=== PATIENT | male | born 1990 | race Asian ===

== ENCOUNTER 2025-11-18 09:43 | Outpatient (AMB) | payer OTHER, SELFPAY ==
--- NOTE | 2025-11-18 09:44 | A.OFFPC_ITS ---
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: No Allergies No Known Allergies Allergy (Verified 11/18/25 09:54) Medication List - Last Reconciled 11/18/25 by JAIMEE Mak No Known Home Meds Tobacco use date assessed: 11/18/25 Dental Screening Dental Screen Date: 11/18/25 Did you have a dental visit in the last 12 months?: No Did you have a dental problem in the last 6 months where you did not have access to dental care?: No Was dental information given to patient?: Patient has dentist HPI HPI Comments History of Present Illness Details 35 y/o [place]ian M with hx of R arm bi rth injury resulting in some numbness of forearm and contracture at elbow, fhx of dm and CHF (dad) Surgery: None Fhx: Dad with DM 79 of CHF, PUncle with DM; Mom alive and well; 3 sisters alive and well. No children. 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 - He expresses a desire to gain muscle m ass. - He denies any specific gastrointestina l symptoms such as abdominal pain, nausea, vomiting, or hematochezia. - He also denies dizziness. 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 - He reports that this has been present since and was told it may have been the result of a injury related - He is able to perform all activities a nd has adapted by using his left hand for certain tasks, but notes the cosmetic appearance and smaller muscle mass on the affected side. Past Medical History - Reports being generally healthy, with past minor illnesses such as flu, fever, and throat infections. 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 - No known drug allergies. - Takes no regular medications. Past Surgical History - Denies any history of surgeries. Family History - Father was diabetic and at age 79 from heart failure. - Maternal uncles had diabetes. - Mother is alive and has no health cond itions. - He has three healthy sisters. 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 - Housing: Lives with his and her p arents. - Family Status: He is and has n o children. - Substance Use: He denies being a smoke r. - He immigrated to the [place] from [place] about 14 months ago. - Functional status: Reports being activ e and has adapted well to his congenital arm deformity. - Depression and anxiety screening were negative. Review of Systems - Constitutional: Reports lifelong thin body habitus despite normal diet. - Gastrointestinal: Denies abdominal karlee n, nausea, vomiting, and blood in stool. - Neurological: Denies dizziness. - Musculoskeletal: Reports congenital de formity of the right arm with limited extension. Physical Exam General: Well developed, well nourished, in no acute distress. Appears stated age. Thin build Head: Normocephalic, atraumatic. Eyes: Pupils are equal, round and reactive to light and accommodation. Conjunctivae are clear. Scleras nonicteric bilat. Vision grossly normal. Ears: TMs clear AU, EACS WNL Nose: Patent, without discharge. Neck: No carotid bruit bilat. Supple, no adenopathy or thyromegaly. Breast: Edu on SBE Lungs: Clear to auscultation bilaterally. No rales, rhonchi or wheeze noted. Good air flow in all kenney. Heart: Regular rate and rhythm. No murmurs, click, rubs or gallops are noted. Abdomen: Bowel sounds present in all quadrants. The abdomen is soft, nontender, with no masses or organomegaly noted. No hernias are noted. : Deferred. Reviewed TARAH & recommendations Pulses: Peripheral pulses are equal and palpable bilaterally. Extremities: No clubbing, cyanosis nor edema is noted. Mild contracture at elbow in R with LROM and decreased muscle Neurologic: Gait and station normal. Cranial Nerves 2-12 intact. Motor strength grossly symmetrical and intact. No sensory loss. Balance normal. Skin: No rashes, ulcers, or lesions noted. Turgor is good. Skin color is good. Hair and nails are without abnormalities. Psych: Normal eye contact, affect and mood appropriate, and normal interactions. Patient is alert and appropriate to context. Results Pending Medical Decision Making The patient is a 35-year-old male establishing primary care with a chief concern of being underweight his entire life despite a normal diet. His BMI is 19.9. Given his concern and family history of diabetes, initial evaluation will include screening for metabolic and endocrine abnormalities. Laboratory studies, including a thyroid panel, testosterone level, and screening for anemia, will be ordered to investigate potential underlying causes for his inability to gain weight. Malabsorption is less likely given the absence of any reported gastrointestinal symptoms. His congenital right arm deformity is chronic, and he is well-adapted with no functional deficits reported, so no acute intervention is warranted. The plan includes a blood draw and urine sample today for baseline health screening, with a follow-up to be determined by the results. Plan Health Maintenance - Established care as a new patient. - Plan to follow up in one year for an a nnual physical exam. - Patient declined Tdap and influenza im munizations at this time. - Patient instructed on how to sign up f or and use the [facility] patient portal for lab results and communication 1. Underweight - To investigate the patient's concern o f being underweight, laboratory studies will be ordered, including screening for diabetes, cholesterol, thyroid dysfunction, anemia, and low testosterone levels. - The patient will provide a blood and u rine sample today. - A plan will be formulated based on the results of these tests. 2. Congenital Deformity Of Right Upper L imb - Noted the chronic, congenital deformit y of the right arm. - The patient is asymptomatic and well-a dapted; no further workup or intervention is indicated at this time. Patient Instructions - Please go for blood work and provide a urine sample today before you leave the clinic. - You will receive an email to sign up f or our patient portal, called [facility]. Please click the link in the email to create your username and password. - When you register for the portal, be s ure to select [facility] as the organization. - You will be able to see your lab resul ts and receive messages from me through the [facility]. - Please schedule your next appointment for an annual physical exam in one year. - You will receive printed information a bout our office, the patient portal, and urgent care locations at the front end assistant. Consent Patient was informed and verbally consented to the use of an ambient scribe for clinic note documentation during this visit. An additional 16 minutes was spent addressing the problem(s) noted at todays visit. This includes time spent before the visit reviewing the chart, time spent during the visit, and time spent after the visit on documentation reviewing la boratory results, diagnostic imaging, medications, performing a medically necessary evaluation, counseling on diagnoses, care coordination, ordering appropriate tests, ordering appropriate medications, review of tests performed by other providers, reporting test results with the patient, communication with other healthcare providers. [facility] Medical History (Updated 11/18/25 @ 10:11 by Ophelia Louis [facility]) No pertinent past medical history Surgical History (Updated 11/18/25 @ 09:49 by Alvarado Fox MA) No pertinent past surgical history Family History (Updated 11/18/25 @ 09:50 by Alvarado Fox MA) Father Diabetes Paternal Uncle Diabetes Social History (Updated 11/18/25 @ 09:50 by Alvarado Fox MA) Household Members: Spouse, Family and Children Both parents involved: No Caregiver staying overnight: No Housing: House Are you a primary critical care registered nurse to a significant other at home: No Do you presently have visiting nurse or other home services: No 75 years or older and lives alone: No Alcohol intake: never Patient Tobacco Use Status: Never used Tobacco e-Cigarette/Vaping Use: Never Used Second Hand Smoke Exposure: No service: No Current occupational status: employed 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 1. Little interest or pleasure in doing things: not at all 2. Feeling down, depressed, or hopeless: not at all 3. Trouble falling or staying asleep, or sleeping too much: several days 4. Feeling tired or having little energy: not at all 5. Poor appetite or overeating: not at all 6. Feeling bad about yourself - or that you are a failure or have let yourself or your family down: not at all 7. Trouble concentrating on things, such as reading the newspaper or watching television: not at all 8. Moving or speaking so slowly that other people could have noticed. Or the opposite - being so fidgety or restless that you have been moving around a lot more than usual: not at all 9. Thoughts that you would be better off or of hurting yourself in some way: not at all Total score: 1 Depression Screening Interpretation: Negative Depression Screening Done: Yes 05341 - PHQ-9 Billing: Yes Source: Developed by Drs. Sp Long, Deysi Willingham, Obinna Vora and colleagues, with an educational sandra from [employer]. Thrive Questionnaire Date Thrive assessed: 11/18/25 I am a: Patient What is your living situation today?: I have a steady place to live Within the past 12 months, did the food you bought not last and you didn't have the money to get more?: Never true Within the past 12 months, did you worry whether your food would run out before you got money to buy more?: Never true Do you have trouble paying for medicines?: No Do you have trouble getting transportation to medical appointments?: No Do you have trouble paying your heating and electricity bill?: No Do you have trouble taking care of your child, family member or friend?: No Do you have trouble with day-to-day activities such as bathing, preparing meals, shopping, managing finances, etc.?: No Are you currently unemployed and looking for a job?: No Are you interested in more education?: Yes Please select the resources that you would like help with: None Currently or been in a relationship where the following occur: No concerns reported THRIVE Score: 0 AUDIT C Alcohol Use Questionnaire (AUDIT-C) 1. How often do you have a drink containing alcohol?: Never 3. How often do you have six or more drinks on one occasion?: Never Total Score: 0 Score Reviewed/Action Taken: Yes ALISHA-7 AMB Questionnaire ALISHA-7 Date ALISHA - 7 assessed: 11/18/25 Feeling nervous, anxious, or on edge: 0 = Not at all Not being able to stop or control worryin = Not at all Worrying too much about different things: 0 = Not at all Trouble relaxin = Not at all Being so restless that it is hard to sit still: 0 = Not at all Becoming easily annoyed or irritable: 0 = Not at all Feeling afraid as if something awful might happen: 0 = Not at all Total ALISHA-7 score (0-4 normal; 5-9 mild; 10-14 moderate; 15-21 severe): 0 Source: Developed by Drs. Sp Long, Deysi Willingham, Obinna Vora and colleagues, with an educational sandra from [employer]. ALISHA-7 Assessment Billing ALISHA-7 Assessment Tool: ALISHA-7 Assessment 51918 Physical exam (Primary Care) Vital Signs: Last Vital Signs Temp 97.6 F 11/18/25 09:50 Pulse 74 11/18/25 09:50 Resp 12 11/18/25 09:50 BP 101/68 11/18/25 09:50 Pulse Ox 100 11/18/25 09:50 Oxygen Delivery Method Room Air 11/18/25 09:50 BMI result Body Mass Index 19.9 Tobacco/Smoking Status: Tobacco use Status Tobacco use date assessed 11/18/25 11/18/25 09:47 Patient Tobacco Use Status Never used Tobacco 11/18/25 09:50 e-Cigarette/Vaping Use Never Used 11/18/25 09:50 PHQ-9: PHQ-9 Score PHQ-9: Total score 1 11/18/25 09:47 Depression Screening Interpretation: Negative Thrive Assessment: Date of Thrive Assessment Date Thrive assessed 11/18/25 11/18/25 09:47 Currently or been in a relationship where the following occur: No concerns reported Coding Level of Care Code New Pt Level 2 (54677) New Pt Prev Care 18-39yr(01053 Diagnoses Encounter to establish care with new provider Z76.89 Body mass index (BMI) of 19 or less in adult Z68.1 Laboratory exam ordered as part of routine general medical examination Z00.00 Influenza vaccination declined Z28.21 Tetanus, diphtheria, and acellular pertussis (Tdap) vaccination declined Z28.21 Family history of diabetes mellitus Z83.3 Family history of congestive heart failure Z82.49 Right arm numbness R20.0 Adult general medical exam Z00.00 Additional Codes ALISHA-7 Assessment Billing - ALISHA-7 Assessment Tool: ALISHA-7 Assessment 73925 ([id number]) PHQ-9 - 96138 - PHQ-9 Billing: Yes ([id number]) Assessment & Plan Assessment & Plan (1) Encounter to establish care with new provider: Code(s): Z76.89 - Persons encountering health services in other specified circumstances (2) Body mass index (BMI) of 19 or less in adult: Code(s): Z68.1 - Body mass index [BMI] 19.9 or less, adult Category: Medical (3) Laboratory exam ordered as part of routine general medical examination: Code(s): Z00.00 - Encounter for general adult medical examination without abnormal findings Category: Medical (4) Influenza vaccination declined: Onset Date: ~11/18/25 Code(s): Z28.21 - Immunization not carried out because of patient refusal Category: Medical (5) Tetanus, diphtheria, and acellular pertussis (Tdap) vaccination declined: Onset Date: ~11/18/25 Code(s): Z28.21 - Immunization not carried out because of patient refusal Category: Medical (6) Family history of diabetes mellitus: Comment: dad and paternal uncles Code(s): Z83.3 - Family history of diabetes mellitus Category: Medical (7) Family history of congestive heart failure: Comment: dad Code(s): Z82.49 - Family history of ischemic heart disease and other diseases of the circulatory system Category: Medical (8) Right arm numbness: Comment: lifelong s/p injury, which sounds like shoulder dystocia Code(s): R20.0 - Anesthesia of skin Category: Medical (9) Adult general medical exam: Onset Date: ~11/18/25 Code(s): Z00.00 - Encounter for general adult medical examination without abnormal findings Category: Medical Plan . Orders: Orders Complete Blood Count no Diff Today Z00.00 - Encounter for general adult medical examination without abnormal findings, Z68.1 - Body mass index [BMI] 19.9 or less, adult Comprehensive Met. Panel Today Z00.00 - Encounter for general adult medical examination without abnormal findings, Z68.1 - Body mass index [BMI] 19.9 or less, adult Lipid Panel Today Z00.00 - Encounter for general adult medical examination without abnormal findings, Z68.1 - Body mass index [BMI] 19.9 or less, adult Microalbumin, Random (w Creat) Today Z00.00 - Encounter for general adult medical examination without abnormal findings, Z68.1 - Body mass index [BMI] 19.9 or less, adult TSH reflex Free T4 Today Z00.00 - Encounter for general adult medical examination without abnormal findings, Z68.1 - Body mass index [BMI] 19.9 or less, adult IRON PROFILE Today Z00.00 - Encounter for general adult medical examination without abnormal findings, Z68.1 - Body mass index [BMI] 19.9 or less, adult Ferritin Today Z00.00 - Encounter for general adult medical examination without abnormal findings, Z68.1 - Body mass index [BMI] 19.9 or less, adult HIV Ab/Ag Today Z00.00 - Encounter for general adult medical examination without abnormal findings, Z68.1 - Body mass index [BMI] 19.9 or less, adult Testosterone, Free/Total Today Z00.00 - Encounter for general adult medical examination without abnormal findings, Z68.1 - Body mass index [BMI] 19.9 or less, adult Hemoglobin A1c Today Z00.00 - Encounter for general adult medical examination without abnormal findings, Z68.1 - Body mass index [BMI] 19.9 or less, adult Vitamin B12 and Folate Today Z00.00 - Encounter for general adult medical examination without abnormal findings, Z68.1 - Body mass index [BMI] 19.9 or less, adult Vitamin D 25-OH Total Today Z00.00 - Encounter for general adult medical examination without abnormal findings, Z68.1 - Body mass index [BMI] 19.9 or less, adult Hepatitis A,B,C Profile Today Z00.00 - Encounter for general adult medical examination without abnormal findings, Z68.1 - Body mass index [BMI] 19.9 or less, adult Patient Instructions: Walk-In Care (Urgent Care): We Make it Easy Walk-in for urgent medical issues such as: ? Seasonal Allergies ? Insect Bites ? Cough ? Diarrhea ? Acute Asthma Attacks ? Back, Knee or Joint Pain ? Ear Infection ? Fever without a Rash ? Headaches ? Nausea ? [place] Eye, Rash or Skin Irritation ? Sore Throat ? Sports Physicals ? Vomiting Most insurances are accepted. Patients do not need to be part of the [facility] to seek care at the walk-in clinic. Locations [address] [place] [address] Open Friday through Friday 8am-5pm *Hours may vary due to staffing availability. To confirm Walk-In Care hours please call. [address] [facility] , [place] [address] ? [phone] [facility] in [place] provides services to ages 18 and over. Open Friday-Friday: 7 a.m. to 5 p.m. and Friday: 9 a.m. to 3 p.m.* *Hours may vary due to staffing availability. To confirm Walk-In Care hours in [place], please call [phone]. [address] [place] [address] ? [phone] [facility] in [place] provides services to ages 12 and over. Open Friday-Friday: 8 a.m. to 5 p.m. Hours may vary due to staffing availability. To confirm Walk-In Care hours in [place], please call [phone]. LABORATORY SERVICES: [facility] ? Primary Location [address] [place] [address] Friday through Friday 6:00 AM ? 5:00 PM Friday 7:00 AM ? 11:00 AM* [phone] The [facility] is centrally located near the front entrance of the [facility] for easy outpatient access. Convenient parking is provided for outpatients. *Hours may vary due to staffing availability. To confirm Laboratory hours for any location, please call [phone]. Offsite Location For your convenience, we offer offsite laboratory draw stations at the following locations: [address] [place] [address] ? [address], [address] Friday through Friday 7:30 AM ? 1:00 PM* [phone] *Hours may vary due to staffing availability. To confirm Laboratory hours for any location, please call [phone]. [place] ? [address] Friday through Friday 6:00 AM ? 3:30 PM* Friday 6:30 AM ? 3 PM* [phone] *Hours may vary due to staffing availability. To confirm Laboratory hours for any location, please call [phone]. [address] [facility] Friday through Friday 7:30 AM ? 4:00 PM* [phone] *Hours may vary due to staffing availability. To confirm Laboratory hours for any location, please call [phone]. [address] [facility] Friday through 9:00 AM ? 4:00 PM* *Hours may vary due to staffing availability. To confirm Laboratory hours for any location, please call [phone]. Appointments are not necessary. Walk-ins are welcome. Like all the departments throughout the [facility], our Lab undergoes frequent reviews to ensure the quality and accuracy of test results, and our staff takes special pride in its status as a nationally accredited facility. Patient Portal: [facility] ONE PATIENT. ONE RECORD. BETTER CARE. [facility] has a fully integrated, cutting- edge mobile electronic health information system that has revolutionized the way we care for our patients and manage our organization. This system improves communication and coordination enabling us to provide safe, higher-quality care, and an overall positive experience for staff and patients. Our first priority, as always, is to deliver the highest quality care possible. The system is running in the background supporting that priority. This portal is for all [facility] and [facility] services and practices. If you are experiencing any technical difficulties with enrolling or logging into the Patient Portal please complete the [facility] Patient Portal Technical Support Form. [facility] now offers a new secure on-line interactive tool for patients to review their health information ? ?Patient Portal. This interactive web portal will enable patients and their families to take an active role in their care by providing easy, secure access to their health information via the internet. The Patient Portal provides patients with instant access to their health inf ormation, including laboratory results, medications, allergies, demographic information, visit history, and more. In addition to managing their own care, parents and health care proxies with authorized consent will appreciate the ability to access the records of those individuals for whom they provide care. Please note: if you wish to gain access (Proxy) to another patient?s portal, you will be required to come to the Medical Records Department in person at [facility]. Both the patient giving proxy access and the proxy will need to provide photo identification and complete the appropriate authorization. The Patient Portal also allows track their appointments online. The [facility] Patient Portal also saves patients time by allowing them to submit updates to their demographic and contact information prior to their visits. Portal email notifications will also alert patients to any new activity on their portal, such as test results and new appointments. In order to initially enroll in the [facility] Patient Portal, you will need to enter some required information including the following: * your [facility] Medical Record number * your personal home email address * name * date of Please note: In order to enroll in the [facility] Patient Portal, we need to have your email address on file in your electronic medical record. ?The email address needs to be specific for one person (yourself) in order for your Portal enrollment to be successful. ?You can update your email address in person with our Registration staff when you are registering for a hospital visit. ?Otherwise, you will need to come to the Health Information Management (Medical Records) Department at [facility]. ?We are open from Friday ? Friday from 7:30 a.m. ? 4:30 p.m. ?You will be required to present a photo id. Once you have successfully enrolled in the Patient Portal, you will receive a one-time user id and password for the Portal, sent to your email address. ?This will allow you to log into the Patient Portal within 99 hrs and reset your own logon id and password, and define personal security questions. ?Once your permanent login and password have been set, you can log into the [facility] [place] at any time via the blue button above or from the Portal Logon button on any page of the [facility] website. [facility] and [facility] encourage all of our patients to enroll in Patient Portal as it presents a valuable opportunity for patients and their families to actively participate in their care and stay healthy Welcome to [facility]. ?We look forward to working with you. Health screenings for men You should visit your health care provider regularly, even if you feel healthy. The purpose of these visits is to: Screen for medical issues Assess your risk for future medical problems Encourage a healthy lifestyle Update vaccinations and other preventive care services Help you get to know your provider in case of an illness Information Even if you feel fine, you should still see your provider for regular checkups. These visits can help you avoid problems in the future. For example, the only way to find out if you have high blood pressure is to have it checked regularly. High blood sugar and high cholesterol level also may not have any symptoms in the early stages. Simple blood tests can check for these conditions. There are specific times when you should see your provider or receive specific health screenings. The [place] Preventive Services Task Force publishes a list of recommended screenings. Below are screening guidelines for men ages 40 to 64. BLOOD PRESSURE SCREENING Have your blood pressure checked at least once every year. Watch for blood pressure screenings in your area. Ask your provider if you can stop in to have your blood pressure checked. Ask your provider if you need your blood pressure checked more often if: You have diabetes, heart disease, kidney problems, or are overweight or have certain other health conditions You have a first-degree relative with high blood pressure You are Black Your blood pressure top number is from 120 to 129 mm Hg, or the bottom number is from 70 to 79 mm Hg If the top number is 130 mm Hg or greater or the bottom number is 80 mm Hg or greater, this is considered stage 1 hypertension. Schedule an appointment with your provider to learn how you can lower your blood pressure. Effects of age on blood pressure CHOLESTEROL SCREENING Cholesterol screening should begin at age 35 for men with no known risk factors for coronary heart disease. Repeat cholesterol screening should take place: Every 5 years for men with normal cholesterol levels More often if changes occur in lifestyle (including weight gain and diet) More often if you have diabetes, heart disease, kidney problems, or certain other conditions COLORECTAL CANCER SCREENING If you are under age 45, talk to your provider about getting screened. You may need to be screened if you have a strong family history of colon cancer or polyps. Screening may also be considered if you have risk factors such as a history of inflammatory bowel disease or polyps. If you are age 45 to 75, you should be screened for colorectal cancer. There are several screening tests available: A stool-based fecal occult blood (gFOBT) or fecal immunochemical test (FIT) every year A stool sDNA test every 1 to 3 years Flexible sigmoidoscopy every 5 years or every 10 years with stool testing FIT done every year CT colonography (virtual colonoscopy) every 5 years Colonoscopy every 10 years You may need a colonoscopy more often if you have risk factors for colorectal cancer, such as: Ulcerative colitis A personal or family history of colorectal cancer A history of growths in your colon called adenomatous polyps DENTAL EXAM Go to the dentist once or twice every year for an exam and cleaning. Your dentist will evaluate if you have a need for more frequent visits. DIABETES SCREENING All adults who do not have risk factors for diabetes should be screened starting at age 35 and repeated every 3 years. If you have other risk factors for diabetes, such as a first degree relative with diabetes, overweight or obesity, high blood pressure, prediabetes, or a history of heart disease, you may be tested more often. If you are overweight and have other risk factors, such as high blood pressure and are planning to become , screening is recommended. EYE EXAM Have an eye exam every 2 to 4 years ages 40 to 54 and every 1 to 3 years ages 55 to 64. Your provider may recommend more frequent eye exams if you have vision problems or glaucoma risk. Have an eye exam that includes an examination of your retina (back of your eye) at least every year if you have diabetes. IMMUNIZATIONS Commonly needed vaccines include: Flu shot: get one every year COVID-19 vaccine: ask your provider what is best for you Tetanus-diphtheria and acellular pertussis (Tdap) vaccine: have as one of your tetanus-diphtheria vaccines if you did not receive it as an adolescent Tetanus-diphtheria: have a booster (or Tdap) every 10 years Varicella vaccine: receive 2 doses if you never had chickenpox or the varicella vaccine and were born in 1980 or after Hepatitis B vaccine: receive 2, 3, or 4 doses, depending on your exact circumstances, if you did not receive these as a child or adolescent, until age 59 Shingles (herpes zoster) vaccine: at or after age 50 Ask your provider if you should receive other immunizations, especially if you have certain medical conditions, such as diabetes or are at increased risk for some diseases such as pneumonia. INFECTIOUS DISEASE SCREENING Screening for hepatitis C: all adults ages 18 to 79 should get a one-time test for hepatitis C. Screening for human immunodeficiency virus (HIV): all people ages 15 to 65 should get a one-time test for HIV. Depending on your lifestyle and medical history, you may need to be screened for infections such as syphilis, chlamydia, and other infections. LUNG CANCER SCREENING You should have an annual screening for lung cancer with low-dose computed tomography (LDCT) if: You are age 50 to 80 years AND You have a 20 pack-year smoking history AND You currently smoke or have quit within the past 15 years OSTEOPOROSIS SCREENING If you are age 50 to 64 and have risk factors for osteoporosis, you should discuss screening with your provider. Risk factors can include long-term steroid use, low body weight, smoking, heavy alcohol use, having a fracture after age 50, or a family history of hip fracture or osteoporosis. Osteoporosis PHYSICAL EXAM All adults should visit their provider from time to time, even if they are healthy. The purpose of these visits is to: Screen for diseases Assess risk of future medical problems Encourage a healthy lifestyle Update vaccinations and other preventive care services Maintain a relationship with a provider in case of an illness Your height, weight, and body mass index (BMI) should be checked at every exam. During your exam, your provider may ask you about: Depression and anxiety Diet and exercise Alcohol and tobacco use Safety, such as use of seat belts and smoke detectors Your medicines and risk for interactions PROSTATE CANCER SCREENING If you're 55 through 69 years old, before having the test, talk to your provider about the pros and cons of having a PSA test. Ask about: Whether screening decreases your chance of dying from prostate cancer. Whether there is any harm from prostate cancer screening, such as side effects from testing or overtreatment of cancer when discovered. Whether you have a higher risk of prostate cancer than others. If you are age 55 or younger, screening is not generally recommended. You should talk with your provider about if you have a higher risk for prostate cancer. Risk factors include: Having a family history of prostate cancer (especially a brother or father) Being If you choose to be tested, the PSA blood test is repeated over time (yearly or less often), though the best frequency is not known. Prostate examinations are no longer routinely done on men with no symptoms. Prostate cancer SKIN EXAM Your provider may check your skin for signs of skin cancer, especially if you're at high risk. People at high risk include those who have had skin cancer before, have close relatives with skin cancer, or have a weakened immune system. TESTICULAR EXAM The [place] Preventive Services Task Force (USPSTF) now recommends against performing testicular self-exams. Doing testicular self-exams has been shown to have little to no benefit.
[2025-11-18 09:50] VITALS: BP 101/68; PULSE 74; RESP 12; TEMP 36.4; O2SAT 100; BMI 19.9
== END 2025-11-18 10:11 | disposition home or self-care (01) ==
LOC: HO.HMCFM 09:43
PROVIDERS: PCP Nurse Practitioner Family; Visit Provider Nurse Practitioner Family
DX: Z00.00 Encounter for general adult medical examination without abnormal findings (principal); R20.0 Anesthesia of skin; R63.6 Underweight; Z68.1 Body mass index [BMI] 19.9 or less, adult; Z28.21 Immunization not carried out because of patient refusal; Z82.49 Family history of ischemic heart disease and other diseases of the circulatory system; Z83.3 Family history of diabetes mellitus

== ENCOUNTER 2025-11-18 09:43 | Outpatient (REF) | payer OTHER, SELFPAY ==
[2025-11-18 16:02] LABS: Hematocrit 43.0 % (42.0-52.0); Hemoglobin 13.8 g/dl (14.0-18.0); Mean Corpuscular HGB Conc 32.1 g/dl (31.0-36.0); Mean Corpuscular Hemoglobin 26.0 pg (27.0-33.0); Mean Corpuscular Volume 81.0 fL (80.0-98.0); NRBC Abs Auto 0.000 X10*3/uL (0.0-0.012); NRBC Pct Auto 0.0 /100WBC (0.0-0.2); Platelet Count 339 X10*3/uL (160-400); Red Blood Count 5.31 X10*6/uL (4.60-5.80); White Blood Count 5.8 X10*3/uL (4.8-10.8)
[2025-11-18 16:43] LABS: Ferritin 160 ng/mL (20-250)
[2025-11-18 16:54] LABS: Folate 8.6 ng/mL (> or = 4.0); Vitamin B12 342 pg/mL (200-900)
[2025-11-18 17:51] LABS: Alanine Aminotransferase 24 U/L (0-40); Albumin Level 4.6 g/dL (3.5-5.0); Alkaline Phosphatase 66 U/L (39-117); Anion Gap 14 (12-20); Aspartate Amino Transferase 30 U/L (5-37); Blood Urea Nitrogen 21 mg/dL (9-16); Calcium 9.4 mg/dL (8.4-10.2); Carbon Dioxide 24 mmol/L (22-29); Chloride 108 mmol/L (96-108); Cholesterol 157 mg/dL (<200); Estimated Glomerular Filt Rate > 60; HDL Cholesterol 43 mg/dL (>40); Iron 67 mcg/dL (45-160); Microalbum/Creatinine Ratio Ur 5.1 ug/mg cr (<30); Percent Iron Saturation 23 % (15-50); Potassium 4.5 mmol/L (3.3-5.1); Sodium 141 mmol/L (135-145); Total Iron Binding Capacity 290 mcg/dL (228-428); Total Protein 7.1 g/dL (6.5-8.0); Triglycerides 85 mg/dL (<150); Unsaturated Iron Binding 223 ug/dL
[2025-11-21 04:51] LABS: HBS Num1 122.87 mIU/mL (0-7.99); HBc Num1 0.05 S/CO (0.00-0.79); HBsAGNum1 0.33 S/CO (0.00-0.99); HIV Num 1 0.06 S/CO (0.00-0.99); Hepatitis A Antibody IgM 0.32 Index (0-0.79); Hepatitis B Surface Antigen Negative (Negative); ~HepC Num1 0.19 S/CO (0.00-0.79); ~Hepatitis A Antibody IgM Nonreactive (Nonreactive); ~Hepatitis B Surface Antibody REACTIVE (Nonreactive); ~Hepatitis C Antibody Nonreactive (Nonreactive)
[2025-11-27 12:19] LABS: Testosterone, Free 61.9 pg/mL (35.0-155.0)
== END 2025-11-18 09:44 | disposition home or self-care (01) ==
LOC: HO.WFDLDS 09:43
PROVIDERS: PCP Nurse Practitioner Family; Visit Provider Nurse Practitioner Family
DX: Z00.00 Encounter for general adult medical examination without abnormal findings (principal); R63.6 Underweight; M21.921 Unspecified acquired deformity of right upper arm; R20.0 Anesthesia of skin; Z76.89 Persons encountering health services in other specified circumstances; Z28.21 Immunization not carried out because of patient refusal; Z83.3 Family history of diabetes mellitus; Z82.49 Family history of ischemic heart disease and other diseases of the circulatory system; Z68.1 Body mass index [BMI] 19.9 or less, adult
CPT/HCPCS: 36415; 80053; 80061; 82043; 82306; 82570; 82607; 82728; 82746; 83036; 83540; 84402; 84403; 84443; 85027; 86704; 86706; 86709; 86803; 87340; 87389; 96127; 99202; 99385